=== PATIENT | female | born 1955 | race Caucasian/White ===

== ENCOUNTER 2023-05-11 07:41 | Outpatient (CLI) | payer OTHER, SELFPAY ==
--- OUTSIDE RECORDS SUMMARY | 2023-05-11 07:43 | XMS_ITS | Continuity of Care Document ---
Author Name Unknown Address [address] [place] [address] Phone Organization [facility] Address [address] [place] [address] Phone Care Team Providers Care Bleacher Pulp Name Role Phone PCP, NO Primary Care Provider Unavailabl e Care Teams Patient Care Team Team Status: Active Member Role Status Dates NO PCP Primary Care Provider Active Patient Care Team Team Status: Inactive Member Role Status Dates NO PCP Primary Care Provider Active Pedro Jefferson MD Emergency Provider Active Chief Complaint and Reason for Visit Chief Complaint TOOTH/JAW & EAR PAIN Allergies, Adverse Reactions, Alerts Allergen Type Severity Reaction Last Updated Verified Status tetracycline Allergy Hives July 15, 2022 11:46am Yes Active Social History Smoking Status Unknown if ever smoked Additional Data Assigned Sex Female Problems Active Problems Medical Problem Onset Date Status Pain, dental Active Abscess, dental Active Medications Medication Status Dose Units Route Directions Qty Days St art Date End Date Instructions Penicillin V Potassium Active 500 MG PO Four Times a Day 28 7 July 15, 2022 12:00am Tramadol Active 50 - 100 MG PO Every 6 Hours 12 July 15, 2022 12:00am 50-100 mg PO q6h PRN pain Vital Signs Vital Reading Result Reference Range Collection Date/Time Height 67 [in_i] July 15 11:44am Weight 99.79 kg July 15 11:44am Body Temperature 98.7 [degF] 96.8-100.4 June 11:44am Heart Rate 71 /min 60-120 July 15 11:44am Respiratory rate 14 /min 12-June 11:44am Oxygen saturation by Pulse oximetry 100 % 90-100 July 15, 2022 1 1:44am BP Systolic 168 mm[Hg] 90-139 July 15, 2 022 11:44am BP Diastolic 90 mm[Hg] 55-89 July 15, 2 022 11:44am BMI (Body Mass Index) 34.5 kg/m2 Octobe r 2021 11:44am Insurance Providers Guarantor JUVENAL GIBSON Address [address] [place] [id number] Contact Info. Home Phone: Payer Policy Id Coverage Id Subscriber's Name Subscriber Id Effective Date Expiration Date System Assigned Code Encounters Encounter Location(s) Arrival/Admit Date Discharge/Depart Date Provider(s) Departed Emergency [facility] July 15, 2022 11:39am July 15, 2022 1:03pm null Plan of Treatment Future Tests Future scheduled test information is unavailable Pending Tests Pending diagnostic test information is unavailable Future Visits Future appointment information is unavailable Referrals to Other Providers Reason for Referral Referral Start Date Provider Nhi giang Contact Information Provider Address NO PCP Future Procedures Future procedure information is unavailable Future Medications Future medication information is unavailable Patient Instructions Tooth Abscess (DC) Dental Pain (DC) Hospital Discharge Instructions Additional Instructions Contact physician for worsening symptoms of: chest pain, fever, chills, difficulty breathing, nausea, vomiting or any other health concerns. Gargle warm salt water multiple times a day Alternate Tylenol and Ibuprofen for pain and take Tramadol as needed for more severe pain Follow-up with your dentist as soon as possible or return to the ER for any worsening symptoms.
--- OUTSIDE RECORDS SUMMARY | 2023-05-11 07:43 | XMS_ITS | Continuity of Care Document ---
Author Name Address [address] [place] [address] Organization Address [address] [place] [address] Care Team Providers Care Shaving Machine Operator Name Role Phone PCP, NO Primary Care Physician Unavailab le Allergies, Adverse Reactions, Alerts Allergen Type Severity Reaction Last Updated Verified Status tetracycline Allergy Hives July 15, 2022 Y Ac tive Medications Active Medications Medication Dose Units Route Sig Qty Days Start Date Status Ins tructions Penicillin V Potassium 500 MG [Multipl e Names On File] Four Times a Day 28 July 15, 2022 Active Tramadol 50 - 100 MG [Multipl e Names On File] Every 6 Hours PRN For Pain July 15, 2022 Active 50-100 mg PO q6h PRN pain Problem List Active Problems Medical Problem Onset Date Status Pain, dental Active Abscess, dental Active Procedures No known history of procedures. Relevant Diagnostic Tests and/or Laboratory Data No known relevant diagnostic tests, laboratory data, and/or discharge summary. Chief Complaint and Reason for Visit Encounter Admit Date Chief Complaint Reason for V isit Departed Emergency July 15, 2022 11:39am TOOTH/JAW & EAR PAIN Hospital Discharge Instructions Additional Discharge Instructions Contac t physician for worsening symptoms of: chest pain, fever, chills, difficulty breathing, nausea, vomiting or any other health concerns. Gargle warm salt water multiple times a day Alternate Tylenol and Ibuprofen for pain and take Tramadol as needed for more severe pain Follow-up with your dentist as soon as possible or return to the ER for any worsening symptoms. Instruction/Education Provided Tooth Abs cess (DC) Dental Pain (DC) Hospital Discharge Medications Medication Dose Units Route Sig Qty Days Order Date Status Ins tructions Penicillin V Potassium 500 MG [Multipl e Names On File] Four Times a Day 28 7 July 15, 2022 Active Tramadol 50 - 100 MG [Multipl e Names On File] Every 6 Hours PRN For Pain July 15, 2022 Active 50-100 mg PO q6h PRN pain Encounters Encounter Facility Location Admit/Visit Date Discharge/Departure Date Attending Provider Departed Emergency [facility] Emergency Room July 15, 2022 11:39am July 15, 2022 1:03pm Functional Status No known functional status. Immunizations No known immunizations. Payers Payer Name Policy Type Covered Constitution Party Relationship Subscrib er System Assigned Code Plan of Care Instructions Tooth Abscess (DC) Dental Pain (DC) Social History No known social history. Vital Signs Vital Reading Result Reference Range Collection Date/Time Height 5 ft 7 in July 15 11:44am Weight 99.79 kg July 15 11:44am Temperature 98.7 F 96.8 F-100.4 F July 15 11:44am Pulse 71 BPM 60-120 July 15 11:44am Respiration 14 RPM -July 15 11:44am Pulse Oximetry 100 % 90-100 July 15 11:44am Blood Pressure Systolic 168 90-139 Octo 2021 11:44am Blood Pressure Diastolic 90 55-89 Jun aydee 2021 11:44am Body Mass Index 34.5 July 15, 2022 11:44am
--- OUTSIDE RECORDS SUMMARY | 2023-05-11 07:43 | XMS_ITS | Continuity of Care Document ---
Author Name [facility] Address [address] [place] [address] Organization [facility] Address [address] [place] [address] Care Team Providers Care Software Release Manager Name Role Phone PCP, NO Primary Care [...] Date Discharge/Departure Date Attending Provider Departed Emergency [facility] Emergency Room July 15, 2022 11:39am July 15, 2022 1:03pm Functional Status No known functional status. Immunizations No known immunizations. Payers Payer Name Policy Type Covered Democrat Relationship Subscrib er [employer] PPO OR HMO Health Maintenance Organization (HMO) - Medicare Risk JUVENAL ARTHUR Self JUVENAL ARTHUR System Assigned Code Plan of Care Instructions [...] 11:44am Blood Pressure Systolic 168 90-139 Octo brittany 2021 11:44am Blood Pressure Diastolic 90 55-89 Oct aydee 2021 11:44am Body Mass Index 34.5 July 15, 2022 11:44am
== END 2023-05-11 07:42 | disposition home or self-care (01) ==
LOC: INJ CL 07:42
PROVIDERS: PCP Internal Medicine; Visit Provider Family Medicine
DX: M51.36 Other intervertebral disc degeneration, lumbar region (principal); M54.16 Radiculopathy, lumbar region
CPT/HCPCS: 64483; J1100; Q9966